=== PATIENT | male | born 1975 | race Caucasian/White ===

== ENCOUNTER 2021-03-15 08:58 | Day surgery (SDC) | payer BC ==
--- NOTE | 2021-03-15 08:51 | PCM.PREANE ---
Preanesthetic Assessment - Anesthesia/Transfusion/Family Hx Anesthesia History: Prior Anesthesia Without Reaction Transfusion History: No Prior Transfusion(s) - Review of Systems General: No Symptoms Pulmonary: No Symptoms Cardiovascular: No Symptoms Gastrointestinal: No Symptoms Neurological: No Symptoms Other: Reports: None - Physical Assessment NPO Status Date: 03/15/21 NPO Status Time: 00:00 Height: 5 ft 9 in Weight: 247 lb ASA Class: 3 Mental Status: Alert & Oriented x3 Airway Class: Mallampati = 2 Dentition: Reports: Normal Dentition Thyro-Mental Finger Breadths: 3 Mouth Opening Finger Breadths: 3 ROM/Head Extension: Full Lungs: Clear to Auscultation, Normal Respiratory Effort Cardiovascular: Regular Rate, Regular Rhythm - Allergies Allergies/Adverse Reactions: Allergies Allergy/AdvReac Type Severity Reaction Status Date / Time latex Allergy Rash Verified 03/09/21 08:16 - Acknowledgements Anesthesia Type Planned: General Anesthesia Pt an Appropriate Candidate for the Planned Anesthesia: Yes Alternatives and Risks of Anesthesia Discussed w Pt/Guardian: Yes Pt/Guardian Understands and Agrees with Anesthesia Plan: Yes PreAnesthesia Questionnaire HEENT History: Reports: None Cardiovascular History: Reports: None Respiratory History: Reports: None Gastrointestinal History: Reports: GERD, Hemorrhoids, Other (See Below) Other Gastrointestinal History: hx stomach ulcers, Genitourinary History: Reports: None Musculoskeletal History: Reports: None Neurological History: Reports: None Psychiatric History: Reports: None Endocrine/Metabolic History: Reports: Obesity/BMI 30+ Hematologic History: Reports: None Immunologic History: Reports: None Oncologic (Cancer) History: Reports: None Dermatologic History: Reports: Eczema - Past Surgical History Head Surgeries/Procedures: Reports: None HEENT Surgical History: Reports: Tonsillectomy Cardiovascular Surgical History: Reports: None Respiratory Surgical History: Reports: None GI Surgical History: Reports: None Male Surgical History: Reports: None Endocrine Surgical History: Reports: None Neurological Surgical History: Reports: None Musculoskeletal Surgical History: Reports: None Oncologic Surgical History: Reports: None Dermatological Surgical History: Reports: None - SUBSTANCE USE Tobacco Use Status *Q: Never Tobacco User - HOME MEDS Home Medications: Home Meds Ascorbic Acid [Vitamin C] 1 tab PO DAILY 03/09/21 [History] Calcium Carbonate [Calcium] 1 tab PO DAILY 03/09/21 [History] Cholecalciferol (Vitamin D3) [Vitamin D3] 1 tab PO DAILY 03/09/21 [History] Cranberry Fruit Extract [Cranberry] 1 tab PO DAILY 03/09/21 [History] Pantoprazole Sodium [Protonix] 40 mg PO DAILY 03/09/21 [History] - CURRENT (IN HOUSE) MEDS Current Meds: Current Medications Albuterol (Albuterol 0.083% 2.5 Mg/3 Ml Neb Soln) 2.5 mg NEB ONETIME PRN PRN Reason: Wheezing Droperidol (Droperidol 5 Mg/2 Ml Sdv) 0.625 mg IVPUSH ONETIME PRN PRN Reason: Nausea/Vomiting Fentanyl (Fentanyl 100 Mcg/2 Ml Sdv) 50 mcg IVPUSH Q5M PRN PRN Reason: Pain (mild 1-3) Hydromorphone HCl (Hydromorphone 2 Mg/Ml Syringe) 1 mg IVPUSH Q10M PRN PRN Reason: Pain (moderate 4-6) Lactated Ringer's (Ringers, Lactated) 1,000 mls @ 125 mls/hr IV ASDIRECTED SEBASTIAN Metoclopramide HCl (Metoclopramide 10 Mg/2 Ml Sdv) 10 mg IVPUSH ONETIME PRN PRN Reason: Nausea/Vomiting Morphine Sulfate (Morphine 10 Mg/Ml Syringe) 2 mg IVPUSH Q10M PRN PRN Reason: Pain (severe 7-10) Naloxone HCl (Naloxone 0.4 Mg/Ml Syringe) 0.1 mg IVPUSH ASDIRECTED PRN PRN Reason: Respiratory Depression Ondansetron HCl (Ondansetron 4 Mg/2 Ml Sdv) 4 mg IVPUSH ONETIME PRN PRN Reason: Nausea/Vomiting Pregabalin (Pregabalin 75 Mg Cap) 150 mg PO DAILY SEBASTIAN Discontinued Medications Cefoxitin Sodium 2 gm/ Premix 50 mls @ 100 mls/hr IV ONETIME ONE Stop: 03/10/21 13:20 Acetaminophen 1,000 mg/ Premix 100 mls @ 400 mls/hr IV NOW ONE Stop: 03/10/21 13:05
[~2021-03-15 08:58] MED LIST: Acetaminophen 1,000 MG in Premix Bag 1 BAG IV ONE; Albuterol 0.083% 2.5 MG/3 ML Neb Soln NEB PRN; HYDROmorphone 2 MG/ML Syringe IVPUSH PRN; Lactated Ringers 1,000 ML IV SCH; Metoclopramide 10 MG/2 ML SDV IVPUSH PRN; Morphine 10 MG/ML Syringe IVPUSH PRN; Naloxone 0.4 MG/ML Syringe IVPUSH PRN; Ondansetron 4 MG/2 ML SDV IVPUSH PRN; cefOXitin 2 GM in Premix Bag 1 BAG IV ONE; fentaNYL 100 MCG/2 ML SDV IVPUSH PRN
[2021-03-15] MEDS: Pregabalin 75 MG Cap PO SCH ×4 (09:30→11:05)
[2021-03-15] MEDS ORDERED: Ondansetron 4 MG/2 ML SDV ONE (09:36)
[2021-03-15] MEDS ORDERED: Midazolam 1 MG/ML 2 ML SDV ONE (09:36)
[2021-03-15] MEDS ORDERED: Chloroprocaine 10 MG/ML 5 ML Amp ONE (09:36)
[2021-03-15] MEDS ORDERED: Bupivacaine 25%/EPINEPHrine/PF 30 ML ONE (09:46)
[2021-03-15] MEDS ORDERED: Lidocaine 2% Jelly 30 ML Tube ONE (09:46)
[2021-03-15] MEDS ORDERED: cefOXitin 1 GM Vial ONE ×2 (09:49)
[2021-03-15] MEDS ORDERED: propofoL 100 ML ONE (09:50)
[2021-03-15] MEDS ORDERED: Dexmedetomidine 200 MCG/2 ML SDV ONE (09:51)
[2021-03-15] MEDS ORDERED: Metoclopramide 10 MG/2 ML SDV ONE (10:41)
[2021-03-15] MEDS ORDERED: Bupivacaine Liposome 1.3% 20 ML SDV ONE (10:45)
[2021-03-15] MEDS ORDERED: Glycopyrrolate 0.2 MG/ML SDV ONE (10:57)
[2021-03-15] MEDS ORDERED: Dexamethasone 4 MG/ML 5 ML MDV ONE (11:30)
[2021-03-15] MEDS ORDERED: Ketorolac 30 MG/ML SDV ONE (11:30)
--- NOTE | 2021-03-15 11:33 | PCM.OPNOTE ---
- General Post-Op/Procedure Note Date of Surgery/Procedure: 03/15/21 Operative Procedure(s): Hemorrhoidectomies Findings: Large right hemorrhoid small left external hemorrhoid Dictation number [id number] Pre Op Diagnosis: Hemorrhoids Post-Op Diagnosis: Large right hemorrhoid. small left external hemorrhoid Primary Surgeon: Keron Tierney Pathology: Hemorrhoids EBL in mLs: 5 Complications: None Condition: Good
--- NOTE | 2021-03-15 11:36 | PCM.POSTAN ---
POST ANESTHESIA ASSESSMENT - MENTAL STATUS Mental Status: Alert, Oriented - VITAL SIGNS Vital Signs: Last Vital Signs Temp 96.8 F L 03/15/21 11:23 Pulse 67 03/15/21 11:29 Resp 14 03/15/21 11:29 BP 100/50 L 03/15/21 11:29 Pulse Ox 95 03/15/21 11:29 - RESPIRATORY Respiratory Status: Respiratory Rate WNL, Airway Patent, O2 Saturation Stable - CARDIOVASCULAR CV Status: Pulse Rate WNL, Blood Pressure Stable - GASTROINTESTINAL GI Status: No Symptoms - POST OP HYDRATION Hydration Status: Adequate & Stable
--- NOTE | 2021-03-15 11:36 | PCM48HPAN ---
Post Anesthesia Note - EVALUATION WITHIN 48HRS OF ANESTHETIC Vital Signs in Normal Range: Yes Patient Participated in Evaluation: Yes Respiratory Function Stable: Yes Airway Patent: Yes Cardiovascular Function Stable: Yes Hydration Status Stable: Yes Pain Control Satisfactory: Yes Nausea and Vomiting Control Satisfactory: Yes Mental Status Recovered: Yes Vital Signs: Last Vital Signs Temp 96.8 F L 03/15/21 11:23 Pulse 67 03/15/21 11:29 Resp 14 03/15/21 11:29 BP 100/50 L 03/15/21 11:29 Pulse Ox 95 03/15/21 11:29
--- NOTE | 2021-03-16 07:59 | OR ---
SURGEON: SHIRLEY FLEMING MD DATE OF PROCEDURE: 03/15/2021 PREOPERATIVE DIAGNOSIS: Hemorrhoids. POSTOPERATIVE DIAGNOSES: 1. A large internal and external right hemorrhoid. 2. Small left external hemorrhoid. PROCEDURES PERFORMED: 1. Excision of right hemorrhoidal column. 2. Excision of left external hemorrhoid. ANESTHESIA: General and regional with local. ESTIMATED BLOOD LOSS: 5 mL. SPECIMENS: Hemorrhoids. COMPLICATIONS: None. REASON FOR PROCEDURE: The patient is a pleasant 45-year-old gentleman who has noticed a hemorrhoid occur on the right side. He is having issues. He did try changing his bowel habits, having good bowel habits, was the toilet and having nice soft stools, but it continues to bother him. He would like to have them treated. Did go over the risks, goals, and alternatives to procedures to include, but not limited to bleeding, infection, recurrence of the hemorrhoid, other hemorrhoidal columns that might become inflamed, injury to underlying structures such as muscle leading to incontinence of flatus and stool and pain. The patient understands and wishes to proceed. OPERATIVE NARRATIVE: The patient was brought back to the OR. He was prepped and draped in usual sterile fashion. He was put in the prone position. He was given a block by Anesthesia. After a time-out was performed, exam under anesthesia was performed. The patient again had a large right external hemorrhoid, did have some component of internal. He also had a smaller left external hemorrhoid. He also had a small, I thought, a fissure right at the apex of his anus. It did not look to be infected or inflamed. Attention was brought to the right side, this was his more symptomatic hemorrhoid. I did put a Vicryl stitch at the apex of the hemorrhoidal column. Now, the area was injected with some local and the hemorrhoid was elevated and removed with Harmonic scalpel, lifting up the hemorrhoidal vessels to try to avoid any injury to the underlying muscles. This was taken off in a wedge format. Now, using the anchor stitch of 3-0 Vicryl, the mucosa was then reapproximated together with interlocking running Vicryl stitch. The distal end of the wound was left open. The patient had a smaller left external hemorrhoid. This was also injected with some local and then elevated and just removed, excisional external hemorrhoidectomy. This wound was just left open. This also connected into the small fissure at the apex. This fissure was cauterized. There was good hemostasis at all operative sites. Again inspected one more time and the patient had good hemostasis. Rest of the local was placed in and some hemostatic foam was placed. The patient tolerated the procedure well. At the end of the case, sponge and needle counts were correct. The patient was transferred to recovery room in stable condition. JEANINE WIHTE /[id number]
== END 2021-03-15 12:43 | disposition home or self-care (01) ==
LOC: MW.SDS 08:58
PROVIDERS: ATTEND Surgery
DX: K64.4 Residual hemorrhoidal skin tags (principal); K64.8 Other hemorrhoids; K64.5 Perianal venous thrombosis; Z91.040 Latex allergy status; E66.9 Obesity, unspecified; Z68.36 Body mass index [BMI] 36.0-36.9, adult
CPT/HCPCS: 46255; 88304; A9270; J0131; J0694; J1100; J1885; J2250; J2370; J2400; J2405; J2704; J2765; J3490; J7120; 00902